=== PATIENT | female | born 1960 | race Caucasian/White ===

== ENCOUNTER → 2016-09-24 | Outpatient (CLI) | payer OTHER ==
[~2016-09-24] MED LIST: ALBUTEROL17 GM INH; AMOXICILLIN PO; BENZONATATE PO; DEXFOL PO; ECHINACEA; PREDNISONE PO; SYNTHROID25 MCG PO; TRAZODONE PO
--- NOTE | ~2016-09-24 | MY11 ---
[facility] A Service [facility] RADIOLOGY TEXT RESULTS PATIENT: DHAVAL FOURNIER LOCATION: [facility] : 62 UNIT #: [id number] AGE: [address]: Hyun Drake [employer] SUPERVISOR SEX: F ORDER DR: [id number] [address] [id number] O MR#: [id number] Acc #: [id number] NAME: DHAVAL FOURNIER : 1960 SEX: F STUDY DATE/TIME: 09/24/2016 11:35 UNIT: [facility] ROOM: STUDY DESCRIPTION: MY Mammogram Screening Dig Gee Attending Physician: Hyun Drake A.P.R.N. Referring Physician: Hyun Drake A.P.R.N. Ordering Physician: Hyun Drake A.P.R.N. Primary Care Physician: Hyun Drake A.P.R.N. MEDICAL IMAGING REPORT This report is preliminary unless electronic signature is present. EXAM Digital screening mammogram 09/24/2016 [facility] HISTORY 55-year-old woman positive family history, mother age 57. Patient indicates pain and thickening upper outer quadrants bilaterally, comes and goes. Annual screen. COMPARISON 05/29/2007, 01/11/2009, 01/12/2010. FINDINGS Digital imaging of each breast was completed utilizing a two-view examination of each breast in craniocaudal and mediolateral-oblique projections. Review and interpretation of digital mammograms include a second review in conjunction with FDA-approved CAD device. There is a normal parenchymal presentation bilaterally consistent with the patient's age. There are no breast masses imaged and no parenchymal asymmetry is visualized. There are no suspicious microcalcifications and I see no focal architectural disturbance. IMPRESSION Negative screening digital mammogram. One-year followup recommended. Patients over the age of 40 are entered into a reminder system with target due date for the next mammogram. A result letter will also be sent to the patient. BIRADS: 1 Negative Dictated by... [facility] A Service [facility] RADIOLOGY TEXT RESULTS PATIENT: DHAVAL FOURNIER LOCATION: [facility] : 62 UNIT #: [id number] AGE: [address]: Hyun Drake SEX: F ORDER DR: Khoi Winter M.D. THIS IS AN ELECTRONICALLY VERIFIED REPORT Khoi Winter M.D. at 09/24/2016 2:53 PM Alicia TD: 09/24/2016 14:31 JOB #: [id number] MEDICAL IMAGING REPORT Page 1 of 1
--- NOTE | ~2016-09-24 | CR63 ---
[facility]. [facility] A Service of [facility] & [facility] RADIOLOGY TEXT RESULTS PATIENT: DHAVAL FOURNIER LOCATION: [facility] : 62 UNIT #: [id number] AGE: [address]: Hyun Drake [employer] FOUNDER [employer] CHAIRMAN SEX: F ORDER DR: [id number] [address] [address] [id number] O MR#: [id number] Acc #: [id number] NAME: DHAVAL FOURNIER : 1960 SEX: F STUDY DATE/TIME: 09/24/2016 11:22 UNIT: [facility] ROOM: STUDY DESCRIPTION: CR Chest 2 View Attending Physician: Hyun Drake A.P.R.N. Referring Physician: Hyun Drake A.P.R.N. Ordering Physician: Hyun Drake A.P.R.N. Primary Care Physician: Hyun Drake A.P.R.N. MEDICAL IMAGING REPORT This report is preliminary unless electronic signature is present. EXAM Chest PA and lateral, 09/24/2016 HISTORY Chest pain and shortness of breath for 4 months. No known injury. Smoking history for 30 years. FINDINGS PA and lateral examination of the chest upright shows a good expansion of the parenchyma with a normal distribution of the pulmonary vascularity. There is no indication of congestion, effusion, infiltrate, tumor, or nodular density. The pleural reflections and diaphragmatic contours are normal. The cardiac silhouette and mediastinal anatomy is within normal limits. IMPRESSION Normal chest. Dictated by... Oleg Alas M.D. THIS IS AN ELECTRONICALLY VERIFIED REPORT Oleg Alas M.D. at 09/25/2016 10:32 AM RANDAL/chris TD: 09/24/2016 22:44 JOB #: [id number] MEDICAL IMAGING REPORT Page 1 of 1
== END | disposition home or self-care (01) ==
LOC: SRAD 10:50
DX: Z12.31 Encounter for screening mammogram for malignant neoplasm of breast (principal); R07.9 Chest pain, unspecified; R06.89 Other abnormalities of breathing; F17.210 Nicotine dependence, cigarettes, uncomplicated; Z80.3 Family history of malignant neoplasm of breast
CPT/HCPCS: 71020; G0202